=== PATIENT | male | born 1980 | race Hispanic/Latino ===

== ENCOUNTER 2024-03-14 13:28 | Outpatient (CLI) | payer OTHER | END 2024-03-14 13:29 | disposition home or self-care (01) | LOC: NAV RAD 13:28 | PROVIDERS: ATTEND Family Medicine | DX: R13.10 Dysphagia, unspecified (principal); J98.11 Atelectasis | CPT/HCPCS: 71046 ==

== ENCOUNTER 2024-03-26 12:04 | Outpatient (CLI) | payer OTHER | END 2024-03-26 12:05 | disposition home or self-care (01) | LOC: NAV RAD 12:04 | PROVIDERS: ATTEND Family Medicine | DX: R13.10 Dysphagia, unspecified (principal) | CPT/HCPCS: 71046 ==

== ENCOUNTER 2024-04-15 12:00 | Outpatient (CLI) | payer OTHER | END 2024-04-15 12:01 | disposition home or self-care (01) | LOC: NAV RAD 12:00 | PROVIDERS: ATTEND Family Medicine | DX: J69.0 Pneumonitis due to inhalation of food and vomit (principal) | CPT/HCPCS: 71046 ==

== ENCOUNTER 2024-04-19 15:14 | Outpatient (CLI) | payer OTHER | END 2024-04-19 15:15 | disposition home or self-care (01) | LOC: NAV EKG 15:14 | PROVIDERS: ATTEND Specialist | DX: Z01.810 Encounter for preprocedural cardiovascular examination (principal) | CPT/HCPCS: 93005; 93010 ==

== ENCOUNTER 2024-06-13 11:38 | Outpatient (CLI) | payer OTHER | END 2024-06-13 11:39 | disposition home or self-care (01) | LOC: NAV RAD 11:38 | PROVIDERS: ATTEND Family Medicine | DX: R13.10 Dysphagia, unspecified (principal) | CPT/HCPCS: 71046 ==

== ENCOUNTER 2024-06-21 14:05 | Outpatient (CLI) | payer OTHER | END 2024-06-21 14:06 | disposition home or self-care (01) | LOC: NAV RAD 14:05 | PROVIDERS: ATTEND Family Medicine | DX: R13.10 Dysphagia, unspecified (principal) | CPT/HCPCS: 71046 ==